=== PATIENT | male | born 1980 | race African-American/Black ===

== ENCOUNTER 2024-07-07 09:31 | Emergency (ER) | payer OTHER ==
[~2024-07-07] VITALS: Ht 177.8 cm; Wt 96.4 kg
[2024-07-07 09:40] VITALS: PULSE 69; RESP 16; TEMP 98.4
[2024-07-07] MEDS: KETOROLAC TROMETHAMINE 30 MG/ML VIAL IM STA (11:51)
[2024-07-07] MEDS ORDERED: CYCLOBENZAPRINE5 MG PO (11:52)
[2024-07-07 12:08] VITALS: BP 138/83; PULSE 57; RESP 16; TEMP 97.7; O2SAT 98
== END 2024-07-07 12:03 | disposition home or self-care (01) ==
LOC: FSED 09:45
DX: M54.50 Low back pain, unspecified (principal); S30.0XXA Contusion of lower back and pelvis, initial encounter; W17.89XA Other fall from one level to another, initial encounter; Y93.89 Activity, other specified; Y92.89 Other specified places as the place of occurrence of the external cause
CPT/HCPCS: 72131; 80053; 84484; 85025; 96372; 99284; J1885